=== PATIENT | female | born 1950 | race Caucasian/White ===

== ENCOUNTER 2024-10-22 13:05 | Outpatient (REF) | payer MEDICARE, SELFPAY | END 2024-10-22 13:06 | disposition home or self-care (01) | LOC: HO.MAMMO 13:05 | PROVIDERS: PCP Internal Medicine; Visit Provider Internal Medicine | DX: Z12.31 Encounter for screening mammogram for malignant neoplasm of breast (principal) | CPT/HCPCS: 77063; 77067 ==

== ENCOUNTER 2024-10-29 10:08 | Outpatient (REF) | payer MEDICARE, SELFPAY ==
[2024-10-29 10:38] LABS: MANUAL DIFF FLAG NO
[2024-10-29 11:02] LABS: Basophils Percent Auto 0.7 % (0-2); Eosinophils Absolute Auto 0.1 X10*3/uL (0.0-0.4); Hematocrit 38.6 % (37.0-47.0); Hemoglobin 12.5 g/dl (12.0-16.0); Imm Gran Abs Auto 0.02 X10*3/uL (0.00-0.03); Imm Gran Pct Auto 0.3 % (0.0-0.4); Lymphocytes Absolute Auto 1.8 X10*3/uL (1.2-4.9); Mean Corpuscular HGB Conc 32.4 g/dl (31.0-35.0); Mean Corpuscular Hemoglobin 29.2 pg (27.0-33.0); Mean Corpuscular Volume 90.2 fL (80.0-98.0); Monocytes Absolute Auto 0.4 X10*3/uL (0.1-1.2); Monocytes Percent Auto 6.3 % (2-11); Neutrophils Absolute Auto 3.7 x10*3/uL (2.0-8.3); Neutrophils Percent Auto 61.7 % (45-73); Platelet Count 257 X10*3/uL (160-400); Red Blood Count 4.28 X10*6/uL (4.20-5.50); Red Cell Distribution Width 13.8 % (11.0-16.0)
[2024-10-29 11:20] LABS: Alanine Aminotransferase 83 U/L (0-31); Alkaline Phosphatase 63 U/L (39-117); Anion Gap 9 (12-20); Aspartate Amino Transferase 75 U/L (5-31); Bilirubin Total 0.4 mg/dL (0.0-1.0); Blood Urea Nitrogen 14 mg/dL (9-16); Calcium 9.4 mg/dL (8.4-10.2); Carbon Dioxide 29 mmol/L (22-29); Chloride 108 mmol/L (96-108); Cholesterol 265 mg/dL (<200); Estimated Glomerular Filt Rate > 60; Glucose Random 89 mg/dL (60-115); HDL Cholesterol 88 mg/dL (>40); LDL Cholesterol Calculated 163 mg/dL (<100); Potassium 4.1 mmol/L (3.3-5.1); Sodium 142 mmol/L (135-145); Thyroid Stimulating Hormone 2.51 uIU/mL (0.32-4.0); Total Protein 7.6 g/dL (6.5-8.0); Triglycerides 74 mg/dL (<150)
== END 2024-10-29 10:09 | disposition home or self-care (01) ==
LOC: HO.LAB 10:08
PROVIDERS: PCP Internal Medicine; Visit Provider Internal Medicine
DX: E03.8 Other specified hypothyroidism (principal); E78.00 Pure hypercholesterolemia, unspecified; Z13.31 Encounter for screening for depression; Z68.22 Body mass index [BMI] 22.0-22.9, adult
CPT/HCPCS: 36415; 80053; 80061; 84443; 85025

== ENCOUNTER 2025-03-17 11:30 | Outpatient (REF) | payer MEDICARE, SELFPAY ==
--- OUTSIDE RECORDS SUMMARY | 2025-03-17 13:16 | XMS_ITS | Data Portability ---
Author Organization [facility] [employer] [facility] [employer], [facility], [facility] Address [address] [place] [address] Care Team Providers Care Nailhead Puncher Name Role Phone ADDI ACEVEDO Primary Care Provider ADDI ACEVEDO Referring Provider Assessment No assessment recorded. Plan of Treatment Reminders Order Date Submit Date Provider Last Modified By Organization Details Last Modified Time Details Appointments None recorded . Lab lipid panel, serum 2017 [facility], [address], [place], [address], 8 15:05:23 CMP, serum or plasma 2017 018 [facility], [address], [place], [address], 8 15:05:23 CBC 2017 [facility], [address] [place], [address], 8 15:05:23 venipunc ture 2017 018 [facility], [address], [place], [address], 8 15:05:23 TSH, serum or plasma 2017 018 [facility], [address], [place], [address], 8 15:05:23 T3, free, serum or plasma 2017 018 [facility], [address], [place], [address], 8 15:05:23 HbA1c (hemoglo bin A1c), blood 2017 018 [facility], [address], [place], [address], 8 15:05:23 microalb umin, urine 2017 018 [facility], [address], [place], [address], 8 15:05:23 zinc, serum or plasma [email or web address] [facility], [address], [place], [address], 8 06:00:41 vitamin D, 25-hydro xy, total, serum 2017 018 [facility], [address], [place], [address], 8 15:22:40 lipid panel, serum 2017 018 [facility], [address], [place], [address], 8 04:03:20 CMP, serum or plasma 2017 018 [facility], [address], [place], [address], 8 04:01:26 CBC 2017 [address] [facility], [address], [place], [address], 8 04:03:21 iron + TIBC + ferritin , serum 2017 018 [email or web address], [address], [place], [address], 8 18:46:52 lipid panel, serum 2016 0[address] [facility], [address], [place], [address], 8 10:35:09 CMP, serum or plasma 2016 017 [facility], [address], [place], [address], 8 10:35:06 CBC 2016 017 [facility], [address], [place], [address], 8 10:35:03 unlisted lab - miscella neous 2016 0[email or web address] [facility], [address], [place], [address], 7 05:47:33 CBC 2016 017 [facility], [address], [place], [address], 7 10:09:12 CMP, serum or plasma 11/14/ 2017 11/14/2 017 [facility], [address], [place], [address], 7 11:34:46 lipid panel, serum 2016 017 [facility], [address], [place], [address], 7 11:34:46 TSH, serum or plasma 2016 017 [facility], [address], [place], [address], 7 11:34:47 culture, urine 2016 017 [facility], [address], [place], [address], 7 20:28:30 urinalys is, dipstick , auto 2016 017 [email or web address] In-Office Order, Internal Use Only DO Not Attach Compendium DO Not Attach Compendium, Do Not Delete/merge, [id number] 7 09:03:46 Referral None recorded . Procedures None recorded . Surgeries None recorded . Imaging MAMMO, screenin g, bilatera l [address], [address], [place], [address], 8 06:25:53 bone density [address], [address], [place], [address], 8 06:25:54 Medication Orders terbinaf ine HCl 250 mg tablet 2017 018 [facility], [address] [place], [address], 8 15:05:23 rosuvast atin 40 mg tablet 2016 017 [email or web address] [facility], [address] [place] [address], [address], 8 13:01:30 nystatin -triamci nolone 100,000 unit/g-0 .1 % topical cream 2016 017 [facility], [address] [facility], [place], [address], 7 09:21:27 Patient TargetsNo targets recorded. Patient Instructions Encounter Date Encounter Id Patient Instructions Last Modified By Organization Details Last Modified Time 01/23/2017 [id number] Urinary Tract Infection (UTI) in Women: Care Instructions ERICA Not available 01/24/2017 07:05:42 vaginal yeast infection: care instructions ERICA Not available 01/24/2017 07:07:05 09/12/2017 [id number] Urinary Tract Infection (UTI) in Women: Care Instructions ERICA Not available 09/16/2017 05:02:07 controlling your asthma: care instructions ERICA Not available 09/16/2017 05:01:51 learning about asthma ERICA Not available 09/16/2017 05:01:51 12/24/2017 [id number] Urinary Tract Infection (UTI) in Women: Care Instructions [email or web address] Not available 12/29/2017 12:59:57 controlling your asthma: care instructions rtorricelli Not available 12/29/2017 12:59:57 learning about asthma rtorricelli Not available 12/29/2017 12:59:57 learning about menopause rtorricelli Not available 12/24/2017 18:46:52 08/05/2018 [id number] mammogram: about this test rtorricelli Not available 08/05/2018 15:05:23 high cholesterol: care instructions rtorricelli Not available 08/05/2018 15:05:23 Reason for Referral None Reported. Results Created Date Observation Date Name Description Value Unit Range Abnormal Flag Note LastModifiedBy Organization Detail LastModifiedTime 01/24/20 17 01/23/2017 urina lysis , dipst ick, auto leukocytes neg negati ve Not Available In-Office Order Internal Use Only DO Not Attach Compendium DO Not Attach Compendium, Do Not Delete/merge, 01/23/2017 09:00:18 01/24/2001/23/2017 urina lysis , dipst ick, auto nitrite neg negati ve Not Available In-Office Order Internal Use Only DO Not Attach Compendium DO Not Attach Compendium, Do Not Delete/merge, 01/23/2017 09:00:18 01/24/2001/23/2017 urina lysis , dipst ick, auto urobilinogen 0.2 0.2 Not Available In-Of fice Order Internal Use Only DO Not Attach Compendium DO Not Attach Compendium, Do Not Delete/merge, 01/23/2017 09:00:18 01/24/2001/23/2017 urina lysis , dipst ick, auto protein neg negati ve Not Available In-Office Order Internal Use Only DO Not Attach Compendium DO Not Attach Compendium, Do Not Delete/merge, 01/23/2017 09:00:18 01/24/2001/23/2017 urina lysis , dipst ick, auto pH 7.0 5.0-7. 0 Not Available In-Office Order Internal Use Only DO Not Attach Compendium DO Not Attach Compendium, Do Not Delete/merge, 01/23/2017 09:00:18 01/24/2001/23/2017 urina lysis , dipst ick, auto blood neg negati ve Not Available In-Office Order Internal Use Only DO Not Attach Compendium DO Not Attach Compendium, Do Not Delete/merge, 01/23/2017 09:00:18 01/24/2001/23/2017 urina lysis , dipst ick, auto specific gravity 1.010 1.020- 1.035 Not Available In-Office Order Internal Use Only DO Not Attach Compendium DO Not Attach Compendium, Do Not Delete/merge, 01/23/2017 09:00:18 01/24/2001/23/2017 urina lysis , dipst ick, auto ketone neg negati ve Not Available In-Office Order Internal Use Only DO Not Attach Compendium DO Not Attach Compendium, Do Not Delete/merge, [id number] 01/23/2017 09:00:18 01/24/2001/23/2017 urina lysis , dipst ick, auto bilirubin neg negati ve Not Available In-Office Order Internal Use Only DO Not Attach Compendium DO Not Attach Compendium, Do Not Delete/merge, [id number] 01/23/2017 09:00:18 01/24/2001/23/2017 urina lysis , dipst ick, auto glucose neg negati ve Not Available In-Office Order Internal Use Only DO Not Attach Compendium DO Not Attach Compendium, Do Not Delete/merge, 01/23/2017 09:00:18 01/24/2001/24/2017 cultu re, urine culture, urine, routine SEE NOTE CULTU RE, URINE , ROUTI NE MICRO NUMBE R: [id number] TEST STATU S: FINAL SPECI MEN SOURC E: URINE SPECI MEN QUALI TY: ADEQU ATE RESUL T: No Growt h Not Available [facility] [address] [place], [place] [address]y [address] [place], [address], 01/24/2017 20:28:30 08/20/20 17 08/20/2017 CBC WBC 5.4 K/uL 4.5-11 .0 Not Available [facility] [address] [place], [place] [address]y [address] [place], [address], 08/21/2017 11:34:45 08/20/20 17 08/20/2017 CBC RBC 4.51 M/uL 4.50-5 .10 Not Available [facility] [address] [facility] [address] [place], [address], 08/21/2017 11:34:45 08/20/20 17 08/20/2017 CBC HGB 13.6 g/dL 12.3-1 5.3 Not Available [facility] [address] [place], [place] [address]y [address] [place], [address], 08/21/2017 11:34:45 08/20/20 17 08/20/2017 CBC HCT 41.4 % 35.9-4 4.6 Not Available [facility] [address], [place], [address], 08/21/2017 11:34:45 08/20/20 17 08/20/2017 CBC MCV 91.9 fL 80.0-9 6.0 Not Available [facility] [address], [place], [address], 08/21/2017 11:34:45 08/20/20 17 08/20/2017 CBC MCH 30.3 pg 27.0-3 3.2 Not Available [facility] [address] [place] [address] [address], [place], [address], 08/21/2017 11:34:45 08/20/20 17 08/20/2017 CBC MCHC 33.0 g/dL 32.0-3 6.0 Not Available [facility], [place], [address], 08/21/2017 11:34:45 08/20/20 17 08/20/2017 CBC platelets 260 K/uL 151-45 0 Not Available [facility], [place], [address], 08/21/2017 11:34:45 08/20/20 17 08/20/2017 CBC RDW 14.5 % 11.9-1 5.5 Not Available [facility] [address] [place], [address], 08/21/2017 11:34:45 08/20/20 17 08/20/2017 CBC MPV 9.0 fL 7.4-10 .4 Not Available [facility] [address], [place], [address], 08/21/2017 11:34:45 08/20/20 17 08/20/2017 CBC neutrophil, percentage 56.0 % 42.2-7 5.2 Not Available [facility] [address] [place], [place] [address]y [address], [place], [address], 08/21/2017 11:34:45 08/20/20 17 08/20/2017 CBC lymphocyte, percentage 36.3 % 20.5-5 1.5 Not Available [facility] [address] [place], [place] [address]y [address], [place], [address], 08/21/2017 11:34:45 08/20/20 17 08/20/2017 CBC monocyte, percentage 6.0 % 1.5-9. 0 Not Available [facility] [address] [place], [place] [address]y [address], [place], [address], 08/21/2017 11:34:45 08/20/20 17 08/20/2017 CBC eosinophil, percentage 1.1 % 1.0-6. 0 Not Available [facility] [address] [place], [place] [address]y [address] [place], [address], 08/21/2017 11:34:45 08/20/20 17 08/20/2017 CBC basophil, percentage 0.6 % 0.0-4. 0 Not Available [facility] [address] [place], [place] [address]y [address], [place], [address], 08/21/2017 11:34:45 08/20/20 17 08/20/2017 CBC lymphocyte, absolute 2.0 K/uL 0.7-4. 9 Not Available [facility] [address], [place], [address], 08/21/2017 11:34:45 08/20/20 17 08/20/2017 CBC monocyte, absolute 0.3 K/uL 0.1-0. 9 Not Available [facility] [address] [facility] [address], [place], [address], 08/21/2017 11:34:45 08/20/20 17 08/20/2017 CBC neutrophil, absolute 3.0 K/uL 1.5-7. 2 Not Available [facility] [address] [place], [place] [address]y [address], [place], [address], 08/21/2017 11:34:45 08/20/20 17 08/20/2017 CBC eosinophil, absolute 0.1 K/uL 0.0-0. 4 Not Available [facility] [address] [facility] [address], [place], [address], 08/21/2017 11:34:45 08/20/20 17 08/20/2017 CBC basophil, absolute 0.0 K/uL 0.0-0. 2 Not Available [facility] [address] [place], [place] [address]y [address], [place], [address], 08/21/2017 11:34:45 08/20/20 17 08/20/2017 CMP, serum or plasm a glucose 92 mg/dL 70-100 Not Available [facility] [address] [place], [place] [address]y [address], [place], [address], 08/21/2017 11:34:46 08/20/20 17 08/20/2017 CMP, serum or plasm a BUN 13 mg/dL 7-25 Not Available [facility] [address] [place], [place] [address]y [address], [place], [address], 08/21/2017 11:34:46 08/20/20 17 08/20/2017 CMP, serum or plasm a creatinine 0.7 mg/dL 0.6-1. 3 Not Available [facility] [address] [place], [place] [address]y [address], [place], [address], 08/21/2017 11:34:46 08/20/20 17 08/20/2017 CMP, serum or plasm a BUN/creatini ne ratio 19.12 calc 10.00- 25.00 Not Available [facility] [address], [place], [address], 08/21/2017 11:34:46 08/20/20 17 08/20/2017 CMP, serum or plasm a eGFR 111 mL/mi n/1.7 3m2 >60 THREE CONSE CUTIV E VALUE S <60 mL/mi n COULD BE INDIC ATIVE OF KIDNE Y DISEA SE. Not Available [facility] [address] [facility] [address], [place], [address], 08/21/2017 11:34:46 08/20/20 17 08/20/2017 CMP, serum or plasm a eGFR non- 91 mL/mi n/1.7 3m2 >60 THREE CONSE CUTIV E VALUE S < 60 mL/mi n COULD BE INDIC ATIVE OF KIDNE Y DISEA SE Not Available [facility] [address] [facility] [address], [place], [address], 08/21/2017 11:34:46 08/20/20 17 08/20/2017 CMP, serum or plasm a sodium 141 mmol/ L 135-14 5 Not Available [facility] [address] [facility] [address] [place], [address], 08/21/2017 11:34:46 08/20/20 17 08/20/2017 CMP, serum or plasm a potassium 4.4 mmol/ L 3.5-5. 5 Not Available [facility] [address], [place], [address], 08/21/2017 11:34:46 08/20/20 17 08/20/2017 CMP, serum or plasm a chloride 104 mmol/ L 100-11 5 Not Available [facility] [address], [place], [address], 08/21/2017 11:34:46 08/20/20 17 08/20/2017 CMP, serum or plasm a CO2 31 mmol/ L 21-33 Not Available [facility] [address] [place] [address] [address] [place], [address], 08/21/2017 11:34:46 08/20/20 17 08/20/2017 CMP, serum or plasm a anion gap 6.5 calc 3.0-11 .0 Not Available [facility] [address] [place] [address] [address] [place], [address], 08/21/2017 11:34:46 08/20/20 17 08/20/2017 CMP, serum or plasm a calcium 9.5 mg/dL 8.8-10 .6 Not Available [facility] [address] [place] [address] [address] [place], [address], 08/21/2017 11:34:46 08/20/20 17 08/20/2017 CMP, serum or plasm a total protein 7.4 g/dL 6.2-8. 6 Not Available [facility] [address] [place] [address] [address] [place], [address], 08/21/2017 11:34:46 08/20/20 17 08/20/2017 CMP, serum or plasm a albumin 4.2 g/dL 3.5-5. 7 Not Available [facility] [address] [place] [address] [address] [place], [address], 08/21/2017 11:34:46 08/20/20 17 08/20/2017 CMP, serum or plasm a globulin 3.2 g/dL 1.3-4. 0 Not Available [facility] [address] [place] [address] [address] [place], [address], 08/21/2017 11:34:46 08/20/20 17 08/20/2017 CMP, serum or plasm a A/G ratio 1.3 calc 1.0-2. 8 Not Available [facility] [address], [place], [address], 08/21/2017 11:34:46 08/20/20 17 08/20/2017 CMP, serum or plasm a AST (SGOT) 39 U/L 13-39 Not Available [facility] [address], [place], [address], 08/21/2017 11:34:46 08/20/20 17 08/20/2017 CMP, serum or plasm a ALT (SGPT) 32 U/L 7-52 Not Available [facility] [address], [place], [address], 08/21/2017 11:34:46 08/20/20 17 08/20/2017 CMP, serum or plasm a alkaline phosphatase 57 U/L 20-128 Not Available [facility] [address] [facility] [address], [place], [address], 08/21/2017 11:34:46 08/20/20 17 08/20/2017 CMP, serum or plasm a total bilirubin 0.48 mg/dL 0.30-1 .00 Not Available [facility] [address] [facility] [address], [place], [address], 08/21/2017 11:34:46 08/20/20 17 08/20/2017 lipid panel , serum cholesterol 220 mg/dL 20-180 high Not Available [facility] [address] [facility] [address], [place], [address], 08/21/2017 11:34:46 08/20/20 17 08/20/2017 lipid panel , serum triglyceride 63 mg/dL 30-150 Not Available [facility] [address] [facility] [address], [place], [address], 08/21/2017 11:34:46 08/20/20 17 08/20/2017 lipid panel , serum HDL cholesterol 87 mg/dL 23-92 Not Available [facility] [address] [place] [address], [address], 08/21/2017 11:34:46 08/20/20 17 08/20/2017 lipid panel , serum VLDL cholesterol 12.60 mg/dL Not Available [facility] [address] [place] [address], [address], 08/21/2017 11:34:46 08/20/20 17 08/20/2017 lipid panel , serum chol/HDL risk ratio 3 calc <3.5 OPTIM AL Not Available [facility] [address] [place] [address], [address], 08/21/2017 11:34:46 08/20/20 17 08/20/2017 lipid panel , serum non-HDL cholesterol 133 mg/dL ALESHIA ABLE IS <130 mg/dl Not Available [facility] [address] [place] [address], [address], 08/21/2017 11:34:46 08/20/20 17 08/20/2017 lipid panel , serum LDL-calculat ed 120 mg/dL Not Available [facility] [address] [place] [address], [address], 08/21/2017 11:34:46 08/20/20 17 08/20/2017 TSH, serum or plasm a TSH 1.7400 mIU/m L 0.5000 -5.000 0 Not Available [facility] [address] [place] [address], [address], 08/21/2017 11:34:47 08/20/20 17 08/20/2017 venip unctu re results Compl ete Not Available [facility] [address] [place] [address], [address], 08/20/2017 10:09:12 12/17/19 18 12/16/2017 CBC WBC 5.0 K/uL 4.5-11 .0 Not Available [facility] [address], [place], [address], 12/17/2017 10:35:02 12/17/19 18 12/16/2017 CBC RBC 4.37 M/uL 4.50-5 .10 low Not Available [facility] [address], [place], [address], 12/17/2017 10:35:02 12/17/19 18 12/16/2017 CBC HGB 13.3 g/dL 12.3-1 5.3 Not Available [facility] [address] [place] [address] [address] [place], [address], 12/17/2017 10:35:02 12/17/19 18 12/16/2017 CBC HCT 39.8 % 35.9-4 4.6 Not Available [facility], [place], [address], 12/17/2017 10:35:02 12/17/19 18 12/16/2017 CBC MCV 91.0 fL 80.0-9 6.0 Not Available [facility] [address] [place] [address] [address] [place], [address], 12/17/2017 10:35:02 12/17/19 18 12/16/2017 CBC MCH 30.4 pg 27.0-3 3.2 Not Available [facility] [address], [place], [address], 12/17/2017 10:35:02 12/17/19 18 12/16/2017 CBC MCHC 33.4 g/dL 32.0-3 6.0 Not Available [facility] [address], [place], [address], 12/17/2017 10:35:02 12/17/19 18 12/16/2017 CBC platelets 242 K/uL 151-45 0 Not Available [facility] [address] [facility] [address], [place], [address], 12/17/2017 10:35:02 12/17/19 18 12/16/2017 CBC RDW 14.8 % 11.9-1 5.5 Not Available [facility] [address], [place], [address], 12/17/2017 10:35:02 12/17/19 18 12/16/2017 CBC MPV 9.2 fL 7.4-10 .4 Not Available [facility] [address], [place], [address], 12/17/2017 10:35:02 12/17/19 18 12/16/2017 CBC neutrophil, percentage 60.5 % 42.2-7 5.2 Not Available [facility] [address], [place], [address], 12/17/2017 10:35:02 12/17/19 18 12/16/2017 CBC lymphocyte, percentage 31.9 % 20.5-5 1.5 Not Available [facility] [address], [place], [address], 12/17/2017 10:35:02 12/17/19 18 12/16/2017 CBC monocyte, percentage 5.6 % 1.5-9. 0 Not Available [facility] [address] [facility] [address], [place], [address], 12/17/2017 10:35:02 12/17/19 18 12/16/2017 CBC eosinophil, percentage 1.5 % 1.0-6. 0 Not Available [facility] [address], [place], [address], 12/17/2017 10:35:02 12/17/19 18 12/16/2017 CBC basophil, percentage 0.5 % 0.0-4. 0 Not Available [facility] [address] [place], [place] [address]y [address], [place], [address], 12/17/2017 10:35:02 12/17/19 18 12/16/2017 CBC lymphocyte, absolute 1.6 K/uL 0.7-4. 9 Not Available [facility] [address] [place], [place] [address]y [address], [place], [address], 12/17/2017 10:35:02 12/17/19 18 12/16/2017 CBC monocyte, absolute 0.3 K/uL 0.1-0. 9 Not Available [facility] [address] [place], [place] [address]y [address], [place], [address], 12/17/2017 10:35:02 12/17/19 18 12/16/2017 CBC neutrophil, absolute 3.0 K/uL 1.5-7. 2 Not Available [facility] [address] [place], [place] [address]y [address], [place], [address], 12/17/2017 10:35:02 12/17/19 18 12/16/2017 CBC eosinophil, absolute 0.1 K/uL 0.0-0. 4 Not Available [facility] [address] [place], [place] [address]y [address], [place], [address], 12/17/2017 10:35:02 12/17/19 18 12/16/2017 CBC basophil, absolute 0.0 K/uL 0.0-0. 2 Not Available [facility] [address] [place], [place] [address]y [address], [place], [address], 12/17/2017 10:35:02 12/17/19 18 12/16/2017 CMP, serum or plasm a glucose 91 mg/dL 70-100 Not Available [facility] [address] [place] [address] [address] [place], [address], 12/17/2017 10:35:05 12/17/19 18 12/16/2017 CMP, serum or plasm a BUN 15 mg/dL 7-25 Not Available [facility] [address] [place], [place] [address] [place], [address], 12/17/2017 10:35:05 12/17/19 18 12/16/2017 CMP, serum or plasm a creatinine 0.7 mg/dL 0.6-1. 3 Not Available [facility] [address] [place] [address] [address] [place], [address], 12/17/2017 10:35:05 12/17/19 18 12/16/2017 CMP, serum or plasm a BUN/creatini ne ratio 22.06 calc 10.00- 25.00 Not Available [facility] [address] [place] [address] [address] [place], [address], 12/17/2017 10:35:05 12/17/19 18 12/16/2017 CMP, serum or plasm a eGFR 111 mL/mi n/1.7 3m2 >60 Patie nt is not fasti ng Not Available [facility] [address] [place] [address] [address] [place], [address], 12/17/2017 10:35:05 12/17/19 18 12/16/2017 CMP, serum or plasm a eGFR non- 91 mL/mi n/1.7 3m2 >60 THREE CONSE CUTIV E VALUE S < 60 mL/mi n COULD BE INDIC ATIVE OF KIDNE Y DISEA SE Not Available [facility] [address] [facility] [address], [place], [address], 12/17/2017 10:35:05 12/17/19 18 12/16/2017 CMP, serum or plasm a sodium 141 mmol/ L 135-14 5 Not Available [facility] [address] [place], [place] [address]y [address] [place], [address], 12/17/2017 10:35:05 12/17/19 18 12/16/2017 CMP, serum or plasm a potassium 4.8 mmol/ L 3.5-5. 5 Not Available [facility] [address] [place], [place] [address]y [address] [place], [address], 12/17/2017 10:35:05 12/17/19 18 12/16/2017 CMP, serum or plasm a chloride 104 mmol/ L 100-11 5 Not Available [facility] [address] [place], [place] [address]y [address] [place], [address], 12/17/2017 10:35:05 12/17/19 18 12/16/2017 CMP, serum or plasm a CO2 27 mmol/ L 21-33 Not Available [facility] [address] [place], [place] [address]y [address] [place], [address], 12/17/2017 10:35:05 12/17/19 18 12/16/2017 CMP, serum or plasm a anion gap 14.4 calc 8.0-16 .0 Not Available [facility] [address] [place] [address] [address] [place], [address], 12/17/2017 10:35:05 12/17/19 18 12/16/2017 CMP, serum or plasm a calcium 9.6 mg/dL 8.8-10 .6 Not Available [facility] [address] [place] [address] [address] [place], [address], 12/17/2017 10:35:05 12/17/19 18 12/16/2017 CMP, serum or plasm a total protein 7.3 g/dL 6.2-8. 6 Not Available [facility] [address] [place] [address] [address] [place], [address], 12/17/2017 10:35:05 12/17/19 18 12/16/2017 CMP, serum or plasm a albumin 4.4 g/dL 3.5-5. 7 Not Available [facility] [address] [place], [place] [address]y [address], [place], [address], 12/17/2017 10:35:05 12/17/19 18 12/16/2017 CMP, serum or plasm a globulin 2.9 g/dL 1.3-4. 0 Not Available [facility] [address] [place], [place] [address]y [address], [place], [address], 12/17/2017 10:35:05 12/17/19 18 12/16/2017 CMP, serum or plasm a A/G ratio 1.5 calc 1.0-2. 8 Not Available [facility] [address] [place] [address] [address] [place], [address], 12/17/2017 10:35:05 12/17/19 18 12/16/2017 CMP, serum or plasm a AST (SGOT) 35 U/L 13-39 Not Available [facility] [address] [place] [address] [address], [place], [address], 12/17/2017 10:35:05 12/17/19 18 12/16/2017 CMP, serum or plasm a ALT (SGPT) 31 U/L 7-52 Not Available [facility] [address] [place] [address] [address], [place], [address], 12/17/2017 10:35:05 12/17/19 18 12/16/2017 CMP, serum or plasm a alkaline phosphatase 61 U/L 20-128 Not Available [facility] [address] [place] [address] [address], [place], [address], 12/17/2017 10:35:05 12/17/19 18 12/16/2017 CMP, serum or plasm a total bilirubin 0.58 mg/dL 0.30-1 .00 Not Available [facility] [address] [facility] [address], [place], [address], 12/17/2017 10:35:05 12/17/19 18 12/16/2017 lipid panel , serum cholesterol 219 mg/dL 20-180 high Not Available [facility] [address] [facility] [address], [place], [address], 12/17/2017 10:35:08 12/17/19 18 12/16/2017 lipid panel , serum triglyceride 84 mg/dL 30-150 Not Available [facility] [address] [facility] [address], [place], [address], 12/17/2017 10:35:08 12/17/19 18 12/16/2017 lipid panel , serum HDL cholesterol 80 mg/dL 23-92 Not Available [facility] [facility] [address], [place], [address], 12/17/2017 10:35:08 12/17/19 18 12/16/2017 lipid panel , serum chol/HDL risk ratio 3 calc Patie nt is not fasti ng Not Available [facility] [facility] [address], [place], [address], 12/17/2017 10:35:08 12/17/19 18 12/16/2017 lipid panel , serum non-HDL cholesterol 139 mg/dL ALESHIA ABLE IS <130 mg/dl Not Available [facility] [address] [facility] [address], [place], [address], 12/17/2017 10:35:08 12/17/19 18 12/16/2017 lipid panel , serum LDL-calculat ed 122 mg/dL Not Available [facility] [address] [facility] [address], [place], [address], 12/17/2017 10:35:08 12/17/19 18 12/16/2017 lipid panel , serum VLDL cholesterol 16.80 mg/dL Not Available [facility] [address] [facility] [address], [place], [address], 12/17/2017 10:35:08 12/17/19 18 12/16/2017 venip unctu re results Compl ete Patie nt is not fasti ng Not Available [facility] [address] [facility] [address], [place], [address], 12/16/2017 09:34:09 12/25/19 18 12/24/2017 iron + TIBC + sofía tin, serum serum iron 82 ug/dL 45-210 Not Available [facility] [address] [place] [address] [address], [place], [address], 12/25/2017 15:22:39 12/25/19 18 12/24/2017 iron + TIBC + sofía tin, serum unsaturated iron binding capacity 240 ug/dL Not Available [facility] [address] [facility] [address], [place], [address], 12/25/2017 15:22:39 12/25/19 18 12/24/2017 iron + TIBC + sofía tin, serum iron binding capacity 322 ug/dL 250-45 0 Not Available [facility] [address] [place] [address] [address] [place], [address], 12/25/2017 15:22:39 12/25/19 18 12/24/2017 iron + TIBC + sofía tin, serum percent iron saturation 25.5 % 13.0-4 5.0 Not Available [facility] [address] [facility] [address], [place], [address], 12/25/2017 15:22:39 12/25/19 18 12/24/2017 iron + TIBC + sofía tin, serum ferritin 32.0 NG/mL 10.0-1 58.0 Not Available [facility] [address], [place], [address], 12/25/2017 15:22:39 12/25/19 18 12/24/2017 vitam in D, 25-hy droxy , total , serum vitamin D, 25-hydroxy 36.71 NG/mL 30.00- 60.00 Kristan banks is not fasti ng Not Available [facility] [address], [place], [address], 12/25/2017 15:22:40 12/25/19 18 12/24/2017 venip unctu re results Compl ete Kristan banks is not fasti ng Not Available [facility] [address] [facility] [address], [place], [address], 12/24/2017 13:43:31 11/07/19 18 11/06/2017 mammo scree n bilat with raj DIGITA L BILATE RAL SCREEN ING MAMMOG EDDIE WITH TOMOSY NTHESI S HISTOR Y: Oswald patel is 67 years old and is seen for screen ing. The patien amanda has the follow ing family histor y of breast cancer : patern al aunt, at age 24, premen opausa l. COMPAR TIM: Compar tim was made to availa ble prior breast imagin g studie s includ ing the most recent exam in 2016. Digita l images were analyz ed by comput er-aid ed detect ion, follow ed by radiol ogist review . MAMMOG EDDIE FINDIN GS: Bilate ral CC, bilate ral MLO views were obtain ed. The breast densit y is hetero geneou sly dense, which lowers the sensit ivity of mammog zain and so has the potent ial to mask underl aliya pathol ogy. There are benign calcif icatio n(s) seen in both breast s. There is no domina nt mass, suspic ious cluste red calcif icatio ns, distor tion or second ivana signs of malign claire. TOMOSY NTHESI S: No suspic ious abnorm ality identi fied. IMPRES ANA: No mammog raphic eviden ce of malign claire. Routin e follow -up mammog eddie in 1 year is recomm ended. BI-RAD S 2 BENIGN Screen ing mammog zain is an import ant aspect of breast health care. A negati ve mammog eddie cannot exclud e the presen ce of cancer , partic ularly in dense breast s. Theref ore, physic kahlil exam and monthl y self-e xam are also import ant. Since some cancer s might not be detect ed by mammog zain, a clinic ally suspic ious area should be consid ered for biopsy . Thank you for trusti ng [facility] with your referr al. If you are a [facility] er and would like to speak with a Radiol ogist concer lindsay this exam, please call . AYSHA MAYBERRY MD DICTAT ING PHYSIC KAHLIL APPROV ING PHYSIC KAHLIL AYSHA MAYBERRY MD 2017 11:22 AM 8 11:22 AM This report is provid ed by [facility] , Ro Cronin https: [email or web address] .Channel M/ [email or web address]/[email or web address] [email or web address] [email or web address] [facility] Scheduling Dept (Imaging) [address] [place] [address], [address], 12/24/2017 13:43:31 11/07/19 18 11/06/2017 mammo scree n bilat with raj DIGITA L BILATE RAL SCREEN ING MAMMOG EDDIE WITH TOMOSY NTHESI S HISTOR Y: Oswald patel is 67 years old and is seen for screen ing. The patien t has the follow ing family histor y of breast cancer : patern al aunt, at age 24, premen opausa l. COMPAR TIM: Compar tim was made to availa ble prior breast imagin g studie s includ ing the most recent exam in 2017. Digita l images were analyz ed by comput er-aid ed detect ion, follow ed by radiol ogist review . MAMMOG EDDIE FINDIN GS: Bilate ral CC, bilate ral MLO views were obtain ed. The breast densit y is hetero geneou sly dense, which lowers the sensit ivity of mammog zain and so has the potent ial to mask underl aliya pathol ogy. There are benign calcif icatio n(s) seen in both breast s. There is no domina nt mass, suspic ious cluste red calcif icatio ns, distor tion or second ivana signs of malign claire. TOMOSY NTHESI S: No suspic ious abnorm ality identi fied. IMPRES ANA: No mammog raphic eviden ce of malign claire. Routin e follow -up mammog eddie in 1 year is recomm ended. BI-RAD S 2 BENIGN Screen ing mammog zain is an import ant aspect of breast health care. A negati ve mammog eddie cannot exclud e the presen ce of cancer , partic ularly in dense breast s. Theref ore, physic kahlil exam and monthl y self-e xam are also import ant. Since some cancer s might not be detect ed by mammog zain, a clinic ally suspic ious area should be consid ered for biopsy . Thank you for trusti [facility] with your referr al. If you are a [facility] er and would like to speak with a Radiol ogist concer lindsay this exam, please call . AYSHA MAYBERRY MD DICTAT ING PHYSIC KAHLIL APPROV ING PHYSIC KAHLIL AYSHA MAYBERRY MD 2017 11:22 AM 8 11:22 AM This report is provid ed by [facility] , Ro Cronin https: [email or web address] .Channel M/ [email or web address] sp [email or web address] [facility] Scheduling Dept (Imaging) [address] [place] [address], [address], 12/24/2017 13:43:31 Result Notes None recorded. Problems Name Problem SNOMED Code Status Onset Date Resolution Date Notes Provider Name and Address Organization Details Recorded Time [facility] 91135616 Active KIKO Everett - [facility], [facility] 04/19/201 7 08:44:44 Asthma 553247155 [facility], [facility] 7 08:44:44 Urinary tract infectious disease 93475932 Active 2015 [facility] 7 08:44:44 Osteopenia 423581912 Active 2016 [facility] 7 15:46:36 Atherosclerosi s of aorta 40497557 Active 2017 abd aorta Addi Reeves i, MD [address], [place], [address], [facility], [facility] 8 12:56:57 Body mass index 20-24 - normal 985143777 Active 2017 [facility] 8 14:19:12 Arthritis 3537097 Active 2017 Belgica Gong [facility], [facility] 8 14:19:27 Onycholysis 42864626 Active 2017 Belgica Gong [facility], [facility] 8 14:20:07 Problem Notes None recorded. Procedures Surgical History Date Name Laterality Status Provider Name and Address Organization Details Recorded Time 08/05/20 18 Quality Medication Reviewed and Updated completed Addi Acevedo MD [address], [place], [address], [facility], [facility] 08/10/2018 08:57:50 08/05/20 18 Quality (DM or HTN) BP Diastolic < 80 completed Belgica Gong [facility], [facility] 08/05/2018 14:17:00 08/05/20 18 Quality (DM or HTN ) BP Systolic < 130 completed Belgica Gong [facility], [facility] 08/05/2018 14:17:03 08/05/20 18 Quality BMI with follow up completed Belgicalore Gong [facility], [facility] 08/05/2018 14:17:07 08/05/20 18 Quality Advanced Care Planning completed Belgica Gong [facility], [facility] 08/05/2018 14:16:49 12/25/19 18 Quality Pain Screening No Pain completed Addi Acevedo MD [address], [place], [address], [facility], [facility] 12/29/2017 12:59:42 12/25/19 18 Quality Functional Assessment completed MD Landon Lopez[address], [place], [address], [facility], [facility] 12/29/2017 12:59:34 12/25/19 18 Quality Medication Reviewed and Updated completed Addi Acevedo MD [address], [place], [address], [facility], [facility] 12/29/2017 12:59:10 12/25/19 18 Quality (DM or HTN) BP Diastolic < [address] [facility], [facility] 12/24/2017 13:43:44 12/25/19 18 Quality Tobacco Non- User completed Addi Acevedo MD [address], [place], [address], [facility], [facility] 12/29/2017 12:59:20 12/25/19 18 Quality (DM or HTN ) BP Systolic < [address] [facility], [facility] 12/24/2017 13:43:47 12/25/19 18 Quality Fall Risk Assessment Low Risk completed Addi Acevedo MD [address], [place], [address], [facility], [facility] 12/29/2017 12:59:28 12/25/19 18 Quality BMI with follow up completed [facility], [facility] 12/24/2017 13:43:42 12/25/19 18 Quality Advanced Care Planning completed [facility], [facility] 12/24/2017 13:43:39 09/12/20 17 Quality Pain Screening No Pain completed Addi Acevedo MD [address], [place], [address], [facility], [facility] 09/15/2017 10:58:36 09/12/20 17 Quality Functional Assessment completed Addi Acevedo MD [address], [place], [address], [facility], [facility] 09/15/2017 10:58:29 09/12/20 17 Quality Medication Reviewed and Updated completed Addi Acevedo MD [address], [place], [address], [facility], [facility] 09/15/2017 10:58:16 09/12/20 17 Quality (DM or HTN) BP Diastolic < [address] [facility], [facility] 09/12/2017 15:46:11 09/12/20 17 Quality Tobacco Non- User completed Addi Acevedo MD [address], [place], [address], [facility], [facility] 09/15/2017 10:58:20 09/12/20 17 Quality (DM or HTN ) BP Systolic < [address] [facility], [facility] 09/12/2017 15:46:14 09/12/20 17 Quality Fall Risk Assessment Low Risk completed Addi Acevedo MD [address], [place], [address], [facility], [facility] 09/15/2017 10:58:24 09/12/20 17 Quality BMI with follow up completed [facility], [facility] 09/12/2017 15:46:08 09/12/20 17 Quality Advanced Care Planning completed [facility], [facility] 09/12/2017 15:46:06 08/20/20 17 Quality Functional Assessment completed [facility], [facility] 08/20/2017 09:14:43 08/20/20 17 Quality Medication Reviewed and Updated completed [facility], [facility] 08/20/2017 09:14:43 08/20/20 17 Medicare AWV Questionnaire completed RADHA Swartz [address], [place], [address], [facility], [facility] 08/20/2017 10:30:09 08/20/20 17 Quality Fall Risk Assessment Low Risk completed [facility], [facility] 08/20/2017 09:14:43 08/20/20 17 Quality BMI with follow up completed [facility], [facility] 08/20/2017 09:14:43 08/20/20 17 Quality Advanced Care Planning completed [facility], [facility] 08/20/2017 09:14:43 08/20/20 17 Quality Incontinence Screening completed [facility], [facility] 08/20/2017 09:14:43 11/05/19 17 Mammogram Screening completed [facility], [facility] 09/11/2017 11:40:39 11/05/19 17 Dxa bone density axial completed [facility], [facility] 09/11/2017 11:40:51 11/07/19 16 Colonoscopy completed [facility], [facility] 09/12/2017 15:47:48 10/25/19 16 Quality Pain Screening No Pain completed [facility], [facility] 10/25/2015 12:13:05 10/25/19 16 Quality Functional Assessment completed [facility], [facility] 10/25/2015 12:13:05 10/25/19 16 Quality Medication Reviewed and Updated completed [facility], [facility] 10/25/2015 12:13:05 10/25/19 16 Quality (DM or HTN) BP Diastolic < 80 completed [facility], [facility] 10/25/2015 12:13:05 10/25/19 16 Medicare AWV Questionnaire completed Addi Acevedo MD [address], [address], [facility], [facility] 10/25/2015 21:37:30 10/25/19 16 Quality Tobacco Non- User completed [facility], [facility] 10/25/2015 12:13:05 10/25/19 16 Quality (DM or HTN ) BP Systolic < 130 completed [facility] 10/25/2015 12:13:05 10/25/19 16 Quality Fall Risk Assessment Low Risk completed [facility] 10/25/2015 12:13:05 10/25/19 16 Quality BMI with follow up completed [facility] 10/25/2015 12:13:06 10/25/19 16 Quality Advanced Care Planning completed [facility] 10/25/2015 12:13:06 10/25/19 16 Quality Incontinence Screening completed [facility] 10/25/2015 12:13:06 10/07/18 96 Hysterectomy completed [facility] 08/23/2015 13:58:55 10/07/18 92 Radial keratotomy completed [facility] 08/23/2015 13:58:55 Intrm oph exam new patient completed Tiffany Vazquez [facility] 12/24/2017 13:39:21 Imaging Results None recorded. Procedure Notes None recorded. Medical Equipment None Reported. Allergies Allergen ID Allergen Name Allergen Category Reaction Reaction Severity Criticality Documentation Date Start Date Code Code System Note Provider Name and Address Organization Details Recorded Time 631552 Product containin g penicilli n (product) medicatio n edema severe Not available 08/23/2015 33812 8001 [facility]ED [facility] 5 13:58:55 915607 animal dander environme nt itching respirato ry distress severe severe Not available 08/20/2017 42816 UNK Maribel Zygmunt [facility] 7 09:19:59 149889 mold extract environme nt respirato ry distress severe Not available 08/20/2017 99539 8 RxNorm Maribel KIKO Maria - [facility] 7 09:20:30 Medications Name Sig Start Date Stop Date Status Note LastModified by Organization Details LastModified Time atorvasta tin 40 mg tablet Take 1 tablet every day by oral route in the evening for 90 days. 09/12 completed patient states she takes 20mg in the evening. Not Available Not Available Not Available atorvasta tin 80 mg tablet Take 0.5 tablets every day by oral route for 90 days. 2015 active Not Available Not Available Not Avai lable sulfameth oxazole 800 mg-trimet hoprim 160 mg tablet Take 1 tablet every 12 hours by oral route as directed . 01/23 completed Not Available Not Available Not Available aspirin 81 mg tablet,de layed release Take 1 tablet every day by oral route. active Not Available Not Available No t Available terbinafi ne HCl 250 mg tablet Take 1 tablet every day by oral route as directed for 90 days. 2017 active Not Available Not Available Not Avai lable nystatin- triamcino lone 100,000 unit/g-0. 1 % topical cream APPLY TO THE AFFECTED AREA(S) BY TOPICAL ROUTE 2 TIMES PER DAY IN THEMORNI NG AND EVENING for 10 days 08/20 completed Not Available Not Available Not Available Proventil HFA 90 mcg/actua tion aerosol inhaler Inhale 2 puffs every 4 hours by inhalati on route as directed . 09/11 completed Not Available Not Available Not Available rosuvasta tin 40 mg tablet Take 1 tablet every day by oral route. 12/24 completed Not Available Not Available Not Available calcium citrate and magnesiu m 150mg/75 mg active Not Available Not Available No t Available [place] 3 Fish Oil 1 tablet daily active Not Available Not Available No t Available Vitamin D3 125 mcg (5,000 unit) tablet Take 1 tablet every day by oral route as directed for 30 days. active Not Available Not Available No t Available Multi For Her 09/11 completed Not Available Not Available Not Available Fluzone High-Dose 2015-16 (PF) 180 mcg/0.5 mL intramusc ular syringe TO BE ADMINIST ERED BY PHARMACI ST FOR IMMUNIZA TION active Not Available Not Available No t Available Fluzone High-Dose 7473-4235 (PF) 180 mcg/0.5 mL intramusc ular syringe TO BE ADMINIST ERED BY PHARMACI ST FOR IMMUNIZA TION 01/23 completed Not Available Not Available Not Available Fluad 2017-18 65yr up(PF)45 mcg(15 mcgx3)/0. 5 mL intramusc ular syringe inject 0.5 millilit er intramus cularly 08/20 completed Not Available Not Available Not Available Vitals Date Recorded Body height Body mass index (BMI) Body weight Body temperature Heart rate Respiratory rate Oxygen saturation Oxygen saturation in Arterial blood by Pulse oximetry Systolic blood pressure Diastolic blood pressure Provider Name and Address Organization Details Last Updated DateTime 8 167.64 cm 23.2 kg/m2 85504.3 g 97.7 [degF] 86 /min 18 /min 96 % 96 % 112 mm[Hg] 70 mm[Hg] [facility], [facility] 8 13:01:14 Date Recorded Body height Body weight Body mass index (BMI) Body temperature Heart rate Oxygen saturation Oxygen saturation in Arterial blood by Pulse oximetry Respiratory rate Systolic blood pressure Diastolic blood pressure Provider Name and Address Organization Details Last Updated DateTime 7 167.64 cm 71217.7 1 g 23.1 kg/m2 97.2 [degF] 82 /min 98 % 98 % 16 /min 110 mm[Hg] 72 mm[Hg] Maribel Thompson [facility], [facility] 7 08:47:14 Date Recorded Body height Body mass index (BMI) Body weight Body temperature Heart rate Respiratory rate Oxygen saturation Oxygen saturation in Arterial blood by Pulse oximetry Systolic blood pressure Diastolic blood pressure Provider Name and Address Organization Details Last Updated DateTime 8 167.64 cm 23.4 kg/m2 81524.8 9 g 97.6 [degF] 98 /min 18 /min 98 % 98 % 116 mm[Hg] 80 mm[Hg] Tiffany [facility], [facility] 8 13:17:41 Date Recorded Body height Body mass index (BMI) Body weight Respiratory rate Body temperature Heart rate Oxygen saturation Oxygen saturation in Arterial blood by Pulse oximetry Systolic blood pressure Diastolic blood pressure Provider Name and Address Organization Details Last Updated DateTime 7 167.64 cm 23.1 kg/m2 01548.7 1 g 16 /min 98.2 [degF] 79 /min 98 % 98 % 118 mm[Hg] 70 mm[Hg] Maribel Thompson [facility], [facility] 09:29:15 Date Recorded Body height Body mass index (BMI) Body weight Body temperature Heart rate Respiratory rate Oxygen saturation Oxygen saturation in Arterial blood by Pulse oximetry Systolic blood pressure Diastolic blood pressure Provider Name and Address Organization Details Last Updated DateTime 7 167.64 cm 23.4 kg/m2 74223.8 9 g 97.5 [degF] 82 /min 18 /min 99 % 99 % 108 mm[Hg] 68 mm[Hg] Tiffany Vazquez [facility], [facility] 13:19:08 Social History Question Answer Notes LastModified by [email or web address] Details LastModified Time Tobacco Smoking Status Never Smoker Joanne bruno [facility], [facility] 08/23/2015 13:58:55 Do You Have An Advance Directive? No [email or web address] Information not available 08/23/2015 How Much Tobacco Do You Chew? None [email or web address] Information not available 08/23/2015 Which Illicit Or Recreational Drugs Have You Used? None [email or web address] Information not available 08/23/2015 Education 4 Year College [email or web address] Information not available 09/11/2016 Alcohol Use No [email or web address] Information n ot available 08/23/2015 Marital Status [email or web address] Informatio n not available 08/23/2015 What Was The Date Of Your Most Recent Tobacco Screening? 08/05/2018 Information not available 05/01/2019 How Much Tobacco Do You Smoke? 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 Moderate [email or web address] Information not available 08/23/2015 Mental Status None recorded. Family History Relationship Description Onset Age of this Age Resolved Age Notes LastModified by Organization Details LastModified Time Mother Myelomenia [email or web address] Not avail able 08/05/2018 14:18:18 Brother Myocardial infarction [email or web address] Not available 03/2016 16:07:31 Sister Osteoporosis [email or web address] Not av ailable 02/07/2016 22:54:55 Sister Polyp of colon [email or web address] Not available 08/05 14:18:18 Medical History Condition Response Cancer (location) N Other Y Gout N Thyroid Disease N Kidney Stones N Emphysema/COPD N Measles/Mumps Y Sexually Transmitted Disease N Depression N Prostate Problems N Vascular Disease N Rash/Skin Condition N Amputation (location) N Parkinson's N Paralysis N Cardiac Pacemaker/defibrillator N Headaches/Migraines N Nerve Damage / Neuropathy N Arthritis N Sleep disorder/Insomnia N Heart disease / Heart Attack N Crohn's Disease N HIV/AIDS N Stroke/TIA N Colon Problems N High Cholesterol Y Serious Injuries N Kidney Disease N Memory Loss/Alzheimer's N High blood pressure N Gallbladder disease N Congestive heart failure N Falls N Hormone Replacement N Blood Thinner Treatment N Alcohol Overuse N Nervous Breakdown N Pollack's Esophagus N Anemia N Urinary Problems N Colon Polyps N Gastritis N Hospitalizations (other than operations) Y Diabetes N Back pain N Rheumatic Fever N Bleeding Disorder N Cardiac Arrhythmias /irregular heart rat e N Osteopenia/Osteoporosis Y Anxiety/Stress N Vision Problems N Asthma Y Erectile / Sexual Dysfunction N Ostomies (location) N Seizures N Sleep Apnea N Jaundice N Hepatitis N Cirrhosis N GERD/Ulcer N Chicken Pox Y Allergies (other than meds) N Gynecological History Statement/Question Response If Post Menopausal, Age at Menopause [age] On BCP's at Conception? N Hysterectomy Menses Monthly N Current Control Method None Age at Menarche 10 Obstetrics History GPAL:G 0 P 0 0 0 0 Immunizations Vaccine Type Date Status Note Provider Nam e and Address Organization Details Recorded Time Pneumococcal conjugate PCV 13 5 completed Not Available [facility] 10/24/2019 03:12:26 pneumococcal polysaccharide PPV23 8 completed Not Available [facility] 10/24/2019 02:27:51 Influenza, high-dose, trivalent, PF 6 completed Maribel Fishert kiana, [facility], [facility] 08/20/2017 09:19:15 zoster live 7 completed Maribel Zygmunt null, [facility], [facility] 08/20/2017 09:19:15 Tdap 7 completed Maribel Vanessamunt [facility], [facility] 08/20/2017 09:19:15 Influenza, high-dose, trivalent, PF 7 completed Maribel Zygmunt null, [facility], [facility] 08/20/2017 09:25:43 Past Encounters Encounter ID Performer Location Encounter Start Date Encounter Closed Date Diagnosis/Indication Diagnosis SNOMED-CT Code Diagnosis ICD10 Code Diagnosis Note [id number] Addi Acevedo MD [facility] [address] [place] [address] 08/23/2015 12:56:18 08/23/2015 14:59:49 Administration of pneumococcal vaccine 00372488 Z23 Abdominal pain 73593493 R10.9 Postmenopausal state 764 45545 Z78.0 Multiple b enign melanocytic nevi 605570736 D22.9 Adult heal th examination 375545894 Z00.00 Asthma 764764238 J45.90 9 Mixed hyperlipidemia 267 325130 E78.2 Vitamin deficiency 23425 002 E56.9 Fatigue 68907821 R53.83 [id number] Addi Acevedo MD [facility] [place] [address] [place] [address] 10/25/2015 11:05:53 10/25/2015 12:49:44 Adult health examination 602118484 Z00.00 Medicare Annual Wellness Visit done today. Hyperlipidemia 34540171 E78.5 Fatigue 48294981 R53.83 [id number] Addi Acevedo MD [facility] [place] [address] [place] [address] 02/07/2016 09:55:43 02/07/2016 11:00:21 Mixed hyperlipidemia 613405474 E78.2 chronic, controlled continue regimen as before. Recheck as scheduled. Asthma 743870819 J45.90 9 chronic, controlled continue regimen as before. Recheck as scheduled. Fatigue 60076062 R53.83 chronic, controlled continue regimen as before. Recheck as scheduled. [id number] Addi Acevedo MD [facility] [place] [address] [place] [address] 09/11/2016 15:09:06 09/11/2016 16:26:56 Hyperlipidemia 47329891 E78.5 Screening mammography 24 637964 Z12.31 Postmenopausal state 764 37152 Z78.0 Adult heal th examination 454171358 Z00.00 Medicare Annual Wellness Visit done today. Urinary tr act infectious disease 18772504 N39.0 [id number] RADHA Swartz [facility] [facility] [address] [place] [address] 01/23/2017 08:33:50 01/23/2017 11:03:20 Urinary tract infectious disease 20684712 N39.0 Acute complaint. Will order dip and culture and treat appropriat mehreen. Candidiasis of vagina 72 114505 B37.3 Acute and not resolving; will provide topical therapy at this time. [id number] RADHA Swartz [place] [address] [place] [address] 08/20/2017 09:02:05 08/20/2017 19:43:43 Adult health examination 041932589 Z00.00 Annual Wellness Visit done today [id number] Addi Acevedo MD [facility] [place] [address] [place] [address] 09/12/2017 13:01:26 09/16/2017 15:57:52 Hyperlipidemia 44641778 E78.5 D/C atorvastat in Urinary tr act infectious disease 83373593 N39.0 cpm Osteopenia 479087208 M85 .80 await results Asthma 931417504 J45.90 9 conttrolle d Adult heal th examination 899678748 Z00.00 [id number] Addi Acevedo MD [facility] [address] [address] [place] [address] 12/24/2017 12:42:13 12/24/2017 16:26:43 Hyperlipidemia 59747511 E78.5 await results Administra tion of pneumococcal vaccine 61126901 Z23 given Fatigue 41886848 R53.83 chronic, controlled continue regimen as before. Recheck as scheduled. Perimenopa usal disorder 719612903 N95.9 Symptoms alopecia Atheroscle rosis of aorta 66956811 I70.0 rec better control of bp/bs/chol Osteopenia 234951253 M85 .80 await results Urinary tr act infectious disease 24467867 N39.0 cpm Asthma 306285238 J45.90 9 conttrolle d [id number] Addi Acevedo MD [facility] [place] [address] [place] [address] 08/05/2018 12:50:10 08/05/2018 14:51:21 Hyperlipidemia 00213779 E78.5 Stable Will Follow In 5 Months /// Modify TX As Needed /// Screening // omega fish oil Impaired f asting glycemia 355825474 R73.01 Stable Will Follow In 5 Months /// Modify TX As Needed /// Screening Onycholysis 32195716 L60 .1 Stable Will Follow In 5 Months /// Modify TX As Needed /// terbenifin e Arthritis 3766177 M19.90 Stable Will Follow In 5 Months /// Modify TX As Needed /// tylenol Osteopenia 399613911 M85 .80 Stable Will Follow In 5 Months /// Modify TX As Needed /// boron vit K2 Normal bod y mass index 19814288 Z68.23 BMI on chart and recorded for quality measure documentat ion Fatigue 60858705 R53.83 Stable Will Follow In 5 Months /// Modify TX As Needed /// Screening Screening mammography 24 785584 Z12.31 Will discuss with results Postmenopausal state 764 20487 Z78.0 Will discuss with results Atheroscle rosis of aorta 40242190 I70.0 rec better control of bp/bs/chol Health Concerns Section Related Observation LastModified by Organization Detai ls LastModified Time None Recorded Concern Status LastModified by Organization Details LastModified Time None Recorded Advance Directives Directive N: Payers Insurance Date Sequence Insurance Name Policy Number Policy Caldera Covered Member ID Caldera Member ID Guarantor Name 08/28/2018 2 FOR LIFE ( - MEDICARE SUPPLEMENT) Shivani A Nuttezak [id number] Shivani Sanford Marlenesharonazak 08/05/2018 1 [place] Shivani Sanford Marlenesharonazak [id number] Shivani Sanford Marlenesharonazak Notes Date Note Type Note Provider Name and Address Organization Details Recorded Time 01/24/20 17 text/htm l Patient presents to the office for acute complaint.Patient c/o frequent urination, and bladder fullness x 2 days. Patient denies any burning or vaginal discharge. Reports vaginal irritation.UTI- will complete dip and culture at this timeVaginal merna- acute and will treat with topical therapy RADHA Swartz [address], [place], [address], [facility] [employer] 01/23/2017 09:10:26 08/20/20 17 text/htm l Medicare Annual Wellness VisitReported bypatient.Visit type:subsequent Medicare Annual Wellness visit PMH/PSH/Rx and Social History Review:updated EMR in appropriate tabs; other providers updated Patient presents to the office for Medicare Annual Wellness Exam, subsequent.Right groin discomfort- acute and reports that she feels as though the right leg will not support her weight until she begins moving and walking.Toenail fungus- chronic and not improving with topical therapy; discussed other homeopathic remedies. RADHA Swartz [address], [place], [address], [facility] [email or web address] 08/20/2017 10:31:52 09/12/20 17 text/htm l AsthmaReported bypatient.Reason for visit:follow-up of exacerbation of chronic complaint Diagnosis:cough variant asthma Complications due to diagnosis:no complications Presenting Symptoms/method of diagnosis:asymptomatic/ found on coincidental testing Current therapy:medication list reviewed Current control and compliance:usually well controlled / stable Current Symptoms/Concerns:no concerns voiced; no feverDyslipidemiaReported bypatient.Reason for visit:continued care of chronic complaint Diagnosis:hypercholesterolemia Complications due to diagnosis:no complicatons Presenting symptoms/method of diagnosis:asymptomatic / coincidental finding on test Interventions:no interventions Current therapy:medication list reviewed; using diet and exercise; using other therapeutic lifestyle changes; no side effects from medication Current control and compliance:usually well controlled, asymptomatic; usually compliant with regimen; exercising regularly; eating healthy meals; improving control since last visit Current tests/results:Lipid profile shows good control as out patient; consults reviewed Current Symptoms/Concerns:none stated; no myalgias; no chest pain; no shortness of breath; no fatigue; no headaches; no blurred vision; no edema; claudicationDysuriaReported bypatient.Reason for visit:acute complaint Quality:burning;pressure Associated Symptoms:frequency;urgency; no feverNotes:Pt c/o dysuria and frequency x days. Pt denies gross hematuria, vaginal d/c, abdominal pain, fever/chills, N/V/D.Extensive/Preventative ExamReported bypatient.Reason for Visit:extensive exam; preventative examOsteoporosis/OsteopeniaRepor mitchel bypatient.Reason for visit:follow-up of exacerbation of chronic complaint Bone Loss Diagnosis:osteopenia Medical history:no history of hip fracture Medication history:no history of greater than 5 mg po qd prednisone for over 3 mo. duration Addi Acevedo MD [address] [address], [place], [address], [facility], [facility] 09/15/2017 11:01:22 12/25/19 18 text/htm l Abnormal Test ResultReported bypatient.Reason for visit:exacerbation of chronic complaint Abnormality:abnormal x-ray; bone density Severity:mild abnormality Duration:constant Onset/Timing:gradual Context:medication use Alleviating factors:nothing Aggravating factors:continued use of medication Associated Symptoms:no easy bruisingNotes:rec calcium/magnesium/boron/vit K2/ recheck bone density in 2 yearsAsthmaReported bypatient.Reason for visit:continued care of chronic complaint Diagnosis:cough variant asthma Complications due to diagnosis:no complications Presenting Symptoms/method of diagnosis:asymptomatic/ found on coincidental testing Current therapy:medication list reviewed Current control and compliance:usually well controlled / stable; usually compliant with regimen Current tests/results:recent consults reviewed Current Symptoms/Concerns:no concerns voiced; no fever Self care:exercising regularlyDyslipidemiaReported bypatient.Reason for visit:continued care of chronic complaint Diagnosis:hypercholesterolemia Complications due to diagnosis:no complicatons Presenting symptoms/method of diagnosis:asymptomatic / coincidental finding on test Interventions:no interventions Current therapy:medication list reviewed; using diet and exercise; using other therapeutic lifestyle changes; no side effects from medication Current control and compliance:usually well controlled, asymptomatic; usually compliant with regimen; exercising regularly; eating healthy meals; improving control since last visit Current tests/results:consults reviewed Current Symptoms/Concerns:none stated; no myalgias; no chest pain; no shortness of breath; no fatigue; no headaches; no blurred vision; no edema; claudicationDysuriaReported bypatient.Reason for visit:acute complaint Quality:burning;pressure Associated Symptoms:frequency;urgency; no feverNotes:Pt c/o dysuria and frequency x days. Pt denies gross hematuria, vaginal d/c, abdominal pain, fever/chills, N/V/D.FatigueReported bypatient.Reason for visit:continued care of chronic complaint Quality:general malaise Severity:mild Duration:intermittent Onset/Timing:gradual Context:doing normal activity Alleviating factors:better diet Aggravating factors:normal activity Associated Symptoms:no feverMenopausal SymptomsReported bypatient.Reason for visit:continued care of chronic complaint Quality:night sweats; mood changes Severity:mild Duration:brief Aggravating Factors:none Associated Symptoms:no abdominal pain; no pelvic pain;irritability;anxietyVascula r Disease*Reported bypatient.Reason for visit:continued care of chronic complaint Diagnosis*:Aortic athersclerosis Complications due to dx:no complicatons Interventions:no interventions Current therapy:medication list reviewed; using diet and exercise; using other therapeutic lifestyle changes; no side effects from medication Current control and compliance:usually well controlled, asymptomatic; usually compliant with regimen; checks bp regularly with home monitor; exercising regularly; eating healthy meals Current tests/results:blood pressure log shows good control as out patient; consults reviewed Addi Acevedo MD [address] [address], [place], [address], [facility] - [facility], [facility] 12/29/2017 13:02:18 08/05/20 18 text/htm l Abnormal Result(s)Reported bypatient.Reason for visit:follow-up of exacerbation of chronic complaint Abnormality:abnormal lab; blood sugar elevated Severity:mild abnormality Duration:intermittent Onset/Timing:gradual Alleviating factors:weight loss /exercise Aggravating factors:nothing Associated Symptoms:no cough; no wheezing; no confusionAbnormal Test ResultReported bypatient.Reason for visit:exacerbation of chronic complaint Abnormality:abnormal x-ray; bone density Severity:mild abnormality Duration:constant Onset/Timing:gradual Context:medication use Alleviating factors:nothing Aggravating factors:continued use of medication Associated Symptoms:no easy bruisingNotes:rec calcium/magnesium/boron/vit K2/ recheck bone density in 2 yearsArthritisReported bypatient.Reason for visit:continued care of chronic complaint Diagnosis:Osteoarthritis Complications due to diagnosis:immobile Presenting symptoms/method of diagnosis:found on routine exam Current therapy:medication list reviewed Current control and compliance:usually well controlled/stable; usually compliant with regimen Current tests/results:recent labs reviewed; consults reviewed Current symptoms/concerns:no fatigue; no blurred vision; no localized weaknessAsthmaReported bypatient.Reason for visit:continued care of chronic complaint Diagnosis:cough variant asthma Complications due to diagnosis:no complications Presenting Symptoms/method of diagnosis:asymptomatic/ found on coincidental testing Current therapy:medication list reviewed Current control and compliance:usually well controlled / stable; usually compliant with regimen Current tests/results:recent consults reviewed Current Symptoms/Concerns:no concerns voiced; no fever Self care:exercising regularlyDyslipidemiaReported bypatient.Reason for visit:continued care of chronic complaint Diagnosis:hypercholesterolemia Complications due to diagnosis:no complicatons Presenting symptoms/method of diagnosis:asymptomatic / coincidental finding on test Interventions:no interventions Current therapy:medication list reviewed; using diet and exercise; using other therapeutic lifestyle changes; no side effects from medication Current control and compliance:usually well controlled, asymptomatic; usually compliant with regimen; exercising regularly; eating healthy meals; improving control since last visit Current tests/results:consults reviewed Current Symptoms/Concerns:none stated; no myalgias; no chest pain; no shortness of breath; no fatigue; no headaches; no blurred vision; no edema; claudicationDysuriaReported bypatient.Reason for visit:acute complaint Quality:burning;pressure Associated Symptoms:frequency;urgency; no feverNotes:Pt c/o dysuria and frequency x days. Pt denies gross hematuria, vaginal d/c, abdominal pain, fever/chills, N/V/D.FatigueReported bypatient.Reason for visit:continued care of chronic complaint Quality:general malaise Severity:mild Duration:intermittent Onset/Timing:gradual Context:doing normal activity Alleviating factors:better diet Aggravating factors:normal activity Associated Symptoms:no feverMenopausal SymptomsReported bypatient.Reason for visit:continued care of chronic complaint Quality:night sweats; mood changes Severity:mild Duration:brief Aggravating Factors:none Associated Symptoms:no abdominal pain; no pelvic pain;irritability;anxietyNail ComplaintReported bypatient.Reason for visit:acute complaint Quality:onychomycosis; see PE re location of affected nail Severity:moderate 5/10 Duration:constant Onset/Timing:gradual Context:no injury Alleviating factors:nothing Aggravating factors:nothingNotes:discussed topical and oral tx if LFTs WNLVascular Disease*Reported bypatient.Reason for visit:continued care of chronic complaint Diagnosis*:Aortic athersclerosis Complications due to dx:no complicatons Interventions:no interventions Current therapy:medication list reviewed; using diet and exercise; using other therapeutic lifestyle changes; no side effects from medication Current control and compliance:usually well controlled, asymptomatic; usually compliant with regimen; checks bp regularly with home monitor; exercising regularly; eating healthy meals Current tests/results:blood pressure log shows good control as out patient; consults reviewed dAdi Acevedo MD [address] [address], [place], [address], [facility] - [facility], [facility] 08/10/2018 09:10:02 OBGyn Episode No OBEpisode recorded.
[2025-03-17 13:53] LABS: Alanine Aminotransferase 31 U/L (0-31); Albumin Level 4.4 g/dL (3.5-5.0); Alkaline Phosphatase 60 U/L (39-117); Anion Gap 11 (12-20); Aspartate Amino Transferase 34 U/L (5-31); Bilirubin Total 0.4 mg/dL (0.0-1.0); Blood Urea Nitrogen 17 mg/dL (9-16); Calcium 9.6 mg/dL (8.4-10.2); Carbon Dioxide 29 mmol/L (22-29); Chloride 104 mmol/L (96-108); Estimated Glomerular Filt Rate > 60; Glucose Random 95 mg/dL (60-115); Potassium 3.7 mmol/L (3.3-5.1); Sodium 140 mmol/L (135-145); Total Protein 7.4 g/dL (6.5-8.0)
[2025-03-17 14:18] LABS: Ferritin 13 ng/mL (10-250); Thyroid Stimulating Hormone 2.62 uIU/mL (0.32-4.0)
[2025-03-18 08:04] LABS: HBc Num1 0.06 S/CO (0.00-0.79); HBsAGNum1 0.26 S/CO (0.00-0.99); Hepatitis B Core Antibody Nonreactive (Nonreactive); Hepatitis B Surface Antigen Negative (Negative); ~HepC Num1 0.16 S/CO (0.00-0.79); ~Hepatitis B Surface Antibody REACTIVE (Nonreactive); ~Hepatitis C Antibody Nonreactive (Nonreactive)
[2025-03-19 13:28] LABS: Anti Nuclear Antibody Screen NEGATIVE (NEGATIVE)
[2025-03-24 00:39] LABS: Smooth Muscle Antibody <20 U (<20)
== END 2025-03-17 11:31 | disposition home or self-care (01) ==
LOC: HO.10HDL 11:30
PROVIDERS: Visit Provider Internal Medicine
DX: E03.8 Other specified hypothyroidism (principal); E78.00 Pure hypercholesterolemia, unspecified; R74.01 Elevation of levels of liver transaminase levels; Z68.22 Body mass index [BMI] 22.0-22.9, adult
CPT/HCPCS: 36415; 80053; 82728; 84443; 86015; 86038; 86704; 86706; 86803; 87340

== ENCOUNTER 2025-09-14 10:42 | Outpatient (REF) | payer MEDICARE, SELFPAY ==
[2025-09-14 13:42] LABS: Alanine Aminotransferase 37 U/L (0-31); Albumin Level 4.3 g/dL (3.5-5.0); Alkaline Phosphatase 60 U/L (39-117); Anion Gap 8 (12-20); Aspartate Amino Transferase 37 U/L (5-31); Blood Urea Nitrogen 15 mg/dL (9-16); Calcium 9.4 mg/dL (8.4-10.2); Carbon Dioxide 31 mmol/L (22-29); Chloride 107 mmol/L (96-108); Cholesterol 261 mg/dL (<200); Estimated Glomerular Filt Rate > 60; HDL Cholesterol 82 mg/dL (>40); Potassium 4.3 mmol/L (3.3-5.1); Sodium 142 mmol/L (135-145); Total Protein 7.6 g/dL (6.5-8.0); Triglycerides 58 mg/dL (<150)
[2025-09-14 13:46] LABS: Thyroid Stimulating Hormone 4.12 uIU/mL (0.32-4.0)
== END 2025-09-14 10:43 | disposition home or self-care (01) ==
LOC: HO.10HDL 10:42
PROVIDERS: Visit Provider Internal Medicine
DX: E78.00 Pure hypercholesterolemia, unspecified (principal); E03.8 Other specified hypothyroidism; R74.01 Elevation of levels of liver transaminase levels
CPT/HCPCS: 36415; 80053; 80061; 84443